=== PATIENT | female | born 1945 | race Caucasian/White ===

== ENCOUNTER 2018-09-24 16:41 | Emergency (ER) | payer MEDICARE, OTHER ==
[~2018-09-24] VITALS: Ht 162.6 cm; Wt 77.6 kg
[2018-09-24 17:12] LABS: URINE BILIRUBIN NEGATIVE (Negative); URINE BLOOD NEGATIVE (Negative); URINE CLARITY CLEAR; URINE COLOR YELLOW; URINE GLUCOSE-RANDOM NEGATIVE (Negative); URINE KETONES NEGATIVE (Negative); URINE LEUKOCYTES-REFLEX 1+ (Negative); URINE NITRITE-REFLEX NEGATIVE (Negative); URINE PROTEIN NEGATIVE (Negative); URINE UROBILINOGEN 0.2 E.U./dl (0.2-1.0)
[2018-09-24 17:21] LABS: BACTERIA-REFLEX 1-9 Few /HPF (None Seen); CASTS None Seen /LPF (None Seen); CRYSTALS None Seen /LPF (None Seen); SQUAMOUS 4-10 Moderate /LPF (0-3); URINE RBC None Seen /HPF (0-2); URINE WBC-REFLEX 0-5 Rare /HPF (0-5)
[2018-09-24 17:29] LABS: ABSOLUTE BASOPHILS 0.1 thou/uL (0.0-0.2); ABSOLUTE MONOCYTES 0.3 thou/uL (0.0-1.2); ABSOLUTE NEUTROPHILS 6.9 thou/uL (1.6-8.1); BASOPHILS 0.8 %; EOSINOPHILS 0.4 %; HEMATOCRIT 37.7 % (37.0-47.0); HEMOGLOBIN 11.8 gm/dL (12.0-15.0); LYMPHOCYTES 12.3 %; MCH 20.3 pg (26.0-34.0); MCHC 31.3 g/dL (28.0-37.0); MCV 64.8 fL (80.0-100.0); MONOCYTES 3.7 %; MPV 8.4 fl. (7.2-11.1); NUCLEATED RBCS 0 /100WBC; PLATELET COUNT* 237 thou/uL (150-400); POLYS 82.8 %; RBC 5.81 mil/uL (4.20-5.00); RDW-CV 15.7 % (10.5-14.5); WBC 8.3 thou/uL (4.0-11.0)
[2018-09-24 17:40] LABS: ANION GAP 10 mmol/L (7-16); BUN 16 mg/dL (7-18); CALCIUM 9.1 mg/dL (8.5-10.1); CHLORIDE 104 mmol/L (98-107); CO2 25 mmol/L (21-32); GLUCOSE 116 mg/dL (70-99); POTASSIUM 4.5 mmol/L (3.5-5.1); SODIUM 139 mmol/L (136-145)
[2018-09-24 17:48] LABS: ALKALINE PHOSPHATASE 72 U/L (46-116); PLATELET ESTIMATE ADEQUATE; SGOT 41 U/L (15-37); SGPT 34 U/L (30-65); TOTAL BILIRUBIN 0.6 mg/dL (<0.1-1.0); TOTAL PROTEIN 8.2 g/dL (6.4-8.2); TROPONIN-I LEVEL <0.06 ng/mL (<0.06)
[2018-09-24 17:49] LABS: HYPOCHROMASIA 1+; MICROCYTES 1+
[2018-09-24 17:50] LABS: SCHISTOCYTES 1+; TARGET CELLS 1+
[2018-09-24] MEDS ORDERED: LISINOPRIL10 MG PO (19:10)
[2018-09-24 20:48] VITALS: BP 164/87
--- NOTE | 2018-09-26 11:07 | EKG ---
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: Reji WRAY : 1945 Requested By: Maeve Kaye Order Number: [id number] MD: Capo Meredith Measurements Intervals [place] Rate: 70 P: 58 [place]: 164 QRS: -15 QRSD: 93 T: 28 QT: 416 QTc: 449 Interpretive Statements Sinus rhythm Borderline left axis deviation No previous ECG available for comparison Electronically Signed On 09-26-2018 11:06:57 [employer]PERVISOR ENGINE REPAIR by Capo Meredith [email or web address] <ELECTRONICALLY SIGNED> By: Capo Meredith MD, [facility] 09/26/18 1106 1700 99 Capo Meredith MD, FACC /EPI
== END 2018-09-24 20:51 | disposition home or self-care (01) ==
LOC: M.ERS 16:41
PROVIDERS: Physician Assistant
DX: I10 Essential (primary) hypertension (principal); Z88.0 Allergy status to penicillin; Z90.49 Acquired absence of other specified parts of digestive tract